=== PATIENT | male | born 1995 | race Caucasian/White ===

== ENCOUNTER 2019-01-24 18:48 | Inpatient (IN) | payer OTHER ==
[~2019-01-24] VITALS: Ht 177.8 cm; Wt 75.1 kg
[2019-01-24] VITALS (16 sets, daily range): BP systolic 88–106; BP diastolic 43–58
[~2019-01-24 18:48] MED LIST: NOHOMEMEDICATIONS
[2019-01-24 19:12] LABS: URINE BLOOD NEGATIVE (Negative); URINE CLARITY CLEAR; URINE COLOR YELLOW; URINE GLUCOSE-RANDOM* NEGATIVE (Negative); URINE KETONES TRACE (Negative); URINE LEUKOCYTES-REFLEX NEGATIVE (Negative); URINE NITRITE-REFLEX NEGATIVE (Negative); URINE PROTEIN (DIPSTICK) NEGATIVE (Negative); URINE SPECIFIC GRAVITY >= 1.030 (1.005-1.035)
[2019-01-24 19:13] LABS: HEMATOCRIT 45.4 % (42.0-52.0); HEMOGLOBIN 15.3 gm/dL (14.0-18.0); MCH 32.2 pg (26.0-34.0); MCHC 33.6 g/dL (28.0-37.0); MCV 95.7 fL (80.0-100.0); RBC 4.75 mil/uL (4.50-6.00); RDW 12.8 % (10.5-14.5); WBC 13.5 thou/uL (4.0-11.0)
[2019-01-24 19:13] LABS: ICTOTEST (BILI CONFIRMATORY) Negative (Negative); URINE BILIRUBIN NEGATIVE (Negative)
[2019-01-24 19:19] LABS: ANION GAP 10 mmol/L (7-16); BUN 10 mg/dL (7-18); CALCIUM 9.2 mg/dL (8.5-10.1); CHLORIDE 108 mmol/L (98-107); CO2 27 mmol/L (21-32); CREATININE 0.9 mg/dL (0.7-1.3); GLUCOSE 95 mg/dL (74-106); SODIUM 145 mmol/L (136-145)
[2019-01-24 19:20] LABS: AMP/METHAMP POSITIVE (Negative); BARBITURATES Negative (Negative); BENZODIAZEPINES POSITIVE (Negative); COCAINE Negative (Negative); METHADONE Negative (Negative); OPIATES Negative (Negative); PCP Negative (Negative)
[2019-01-24 19:24] LABS: SALICYLATE < 2.8 mg/dL (2.8-20.0)
--- NOTE | 2019-01-24 19:41 | NUR ---
PT INTUBATED @ 1857 AND ETT=25 @ TEETH WITH + COLOR CHANGE OG INSERTED @ 1909, 55 @ LIP
[2019-01-24 20:05] LABS: BE(vivo) -4.3 mmol/L (-2 to +3); PCO2 44.9 mmHg (35.0-45.0); sO2 99.5 % (92.0-98.0)
[2019-01-24 20:07] LABS: pH 7.309 (7.360-7.450)
--- NOTE | 2019-01-24 22:00 | NUR ---
[address] GIRON ADMITTED TO ICU VIA CART FROM ER. INTUBATED AND SEDATED WITH PROPOFOL AND PRECEDEX. WILL TITRATE OFF PROPOFOL. FOLLOWS NO COMMANDS WITHDRAWS TO PAIN. MONITOR SHOWS SINUS RHYTHM. WILL CONT TO MONITOR.
[2019-01-25] VITALS (11 sets, daily range): BP systolic 81–97; BP diastolic 44–59
--- NOTE | 2019-01-25 00:05 | NUR ---
PT SELF EXTUBATED. AWAKE AND ALERT MILES. CURSING WANTS TO GET OUT OF HERE PLACED ON A FACE MASK. BECAME AGITATED. RIPPED OFF O2 MASK. O2 SAT ON ROOM AIR 98 % PROPOFOL GTT OFF PRECEDEX 0.4. WILL CONT TO MONITOR.
--- NOTE | 2019-01-25 00:10 | NUR ---
DR PARKER AND Bartolome [employer]OR[employer] EDUCATION NOTIFIED O9 EXTUBATION. NO ORDERS. NO TRAUMA VOICE RETURNED. WILL CONT TO MONITOR.
--- NOTE | 2019-01-25 01:00 | NUR ---
PT RESTING QUIETLY. VSS SINUS RHYTHM. O2 SAT REMAINS 98 % ON ROOM AIR.
--- NOTE | 2019-01-25 01:30 | NUR ---
PT AWAKE AND DEMANDING TO BE RELEASED. 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 PT ALSO STATED THAT HE DID COCAINE AND EXTACSY LAST WEEK. PTS MOTHER AND GRANDMOTHER CALLED. PT SPOKE WITH HIS MOTHER ON THE PHONE AND CURSED AND TOLD HER TO F OFF. WHEN I SPOKE TO PTS MOTHER SHE SAID HER OTHER SON IS IN DRUG REHAB NOW. SHE WILL FLY IN FROM [place] IN AM. PTS FRIEND AT BEDSIDE.
--- NOTE | 2019-01-25 02:00 | NUR ---
Pt has been AAOx4 since self extubation. He is insisting to leave the hospital. spoke with , who examed pt in ER, regarding SI status. There is no indication that pt has SI. After multiple times educating pt regarding risks, including , pt remain insistent to leave the hospital. AMA paper signed, mom and grandmother notified, significant other present. Pt ambulated out of ICU with S.O.
[2019-01-27 22:06] LABS: TRICYCLIC (TCA) CONFIRMATION Negative ng/mL (Cutoff=100)
== END 2019-01-25 02:00 | disposition left against medical advice (07) | DRG 918 ==
LOC: ER 18:48 → EROBS 19:49 → ICU 21:24
PROVIDERS: Emergency Medicine; ADMIT Internal Medicine
DX: T42.4X1A Poisoning by benzodiazepines, accidental (unintentional), initial encounter (principal); Z53.21 Procedure and treatment not carried out due to patient leaving prior to being seen by health care provider; T40.7X1A Poisoning by cannabis (derivatives), accidental (unintentional), initial encounter; Y92.89 Other specified places as the place of occurrence of the external cause
CPT/HCPCS: 10078